=== PATIENT | female | born 1980 | race Asian ===

== ENCOUNTER 2018-07-14 04:00 | Emergency (ER) | payer BC ==
[~2018-07-14] VITALS: Ht 157.5 cm; Wt 59.1 kg
[2018-07-14 04:05] VITALS: BP 105/77
--- NOTE | 2018-07-14 04:35 | NUR ---
PATIENT TO ER BED 4.
--- NOTE | 2018-07-14 04:35 | NUR ---
PT PRESENTS TO ED WITH DEHISCING LOWER ABD WOUND FROM PERFORMED ON 07/12/18. PT AMBULATED TO BED WITH FAMILY. PT STATES PAIN 06/30 WITH AMBULATION. DENIES N/V/D, NO CHEST PAIN, NO SOB OR DYPSNEA. BLEEDING CONTROLLED. VSS. ER MD AWARE. CONTINUE TO MONITOR.
--- NOTE | 2018-07-14 04:51 | NUR ---
ON 07/05/18 PT HAD AT [facility]. PMD IS DR XUAN GRAJEDA
--- NOTE | 2018-07-14 06:57 | NUR ---
Pt in bed awake with eyes open and vss. Family at bedside. ER DM aware. Continue to monitor.
--- NOTE | 2018-07-14 07:09 | NUR ---
DR AGOSTO AT BEDSIDE FRO PT EVALUATION .
--- NOTE | 2018-07-14 07:19 | NUR ---
6 1/ STERI-STRIPS APPLIES TO ABD WOUND PER DR AGOSTO, ABD APPLIED OVER STRIPS.
[2018-07-14 07:35] VITALS: BP 111/60
--- NOTE | 2018-07-14 07:35 | NUR ---
Patient discharged with v/s stable. Written and verbal after care instructions given and explained. Patient verbalized understanding. Ambulatory with steady gait. All questions addressed prior to discharge. Advised to follow up with PMD.
== END 2018-07-14 07:35 | disposition home or self-care (01) ==
LOC: MED 04:00
DX: L76.22 Postprocedural hemorrhage of skin and subcutaneous tissue following other procedure (principal); Y83.8 Other surgical procedures as the cause of abnormal reaction of the patient, or of later complication, without mention of misadventure at the time of the procedure; Y76.3 Surgical instruments, materials and obstetric and gynecological devices (including sutures) associated with adverse incidents
CPT/HCPCS: 99283